=== PATIENT | female | born 1985 | race Caucasian/White ===

== ENCOUNTER 2016-12-13 05:39 | Inpatient (IN) | payer MEDICAID ==
[2016-12-13] MEDS ORDERED: Sodium Chloride 0.9% 10 ML Syringe FLUSH PRN (05:51)
[2016-12-13] MEDS ORDERED: Sodium Chloride 0.9% 2.5 ML Syringe FLUSH PRN (05:51)
[2016-12-13] MEDS ORDERED: Citric Acid/Sodium Citrate Solution 30 ML Cup PO SCH (06:00)
[2016-12-13] MEDS ORDERED: ceFAZolin 1 GM in Premix Bag 1 BAG IV ONE (06:00)
[2016-12-13] MEDS: Lactated Ringers 1,000 ML IV SCH ×2 (06:15→07:36)
--- NOTE | 2016-12-13 07:02 | PCM.PREANE ---
Preanesthetic Assessment - Procedure Proposed Procedure: C Section, repeat performance - Anesthesia/Transfusion/Family Hx Anesthesia History: Prior Anesthesia Without Reaction Other Type of Anesthesia Reaction Comment: has had problems with Epidural and Spinal anesthesia Family History of Anesthesia Reaction: No Transfusion History: No Prior Transfusion(s) Intubation History: Unknown - Review of Systems General: No Symptoms Pulmonary: No Symptoms Cardiovascular: No Symptoms Gastrointestinal: Other (GERD of ) Neurological: No Symptoms Other: Reports: Anxiety - Physical Assessment Height: 5 ft 1 in Weight: 159 lb ASA Class: 2 Mental Status: Alert & Oriented x3 Airway Class: Mallampati = 2 Dentition: Reports: Normal Dentition Thyro-Mental Finger Breadths: 4 Mouth Opening Finger Breadths: 3 (small) ROM/Head Extension: Full Lungs: Clear to auscultation, Normal respiratory effort Cardiovascular: Regular Rate, Regular Rhythm, No Murmurs - Lab Values: Laboratory Last Values WBC 19.35 K/uL (4.0-11.0) H 12/13/16 06:13 RBC 3.78 M/uL (4.30-5.90) L 12/13/16 06:13 Hgb 12.1 g/dL (12.0-16.0) 12/13/16 06:13 Hct 36.1 % (36.0-46.0) 12/13/16 06:13 MCV 95.5 fL (80.0-98.0) 12/13/16 06:13 MCH 32.0 pg (27.0-32.0) 12/13/16 06:13 MCHC 33.5 g/dL (31.0-37.0) 12/13/16 06:13 RDW Std Deviation 51.8 fl (28.0-62.0) 12/13/16 06:13 RDW Coeff of Ashlee 15 % (11.0-15.0) 12/13/16 06:13 Plt Count 175 K/uL (150-400) 12/13/16 06:13 MPV 11.00 fL (7.40-12.00) 12/13/16 06:13 Nucleated RBC % 0.0 /100WBC 12/13/16 06:13 Nucleated RBCs # 0 K/uL 12/13/16 06:13 - Allergies Allergies/Adverse Reactions: Allergies Allergy/AdvReac Type Severity Reaction Status Date / Time latex Allergy Rash Verified 12/10/16 15:47 - Blood Blood Available: No - Anesthesia Plan Pre-Op Medication Ordered: Antacids - Acknowledgements Anesthesia Type Planned: Spinal Pt an Appropriate Candidate for the Planned Anesthesia: Yes Alternatives and Risks of Anesthesia Discussed w Pt/Guardian: Yes Pt/Guardian Understands and Agrees with Anesthesia Plan: Yes Additional Comments: father of baby present for interview, exam, and will be in OR for delivery. PreAnesthesia Questionnaire Other HEENT History: wears glasses Cardiovascular History: Reports: None Respiratory History: Reports: None Gastrointestinal History: Reports: GERD Other Gastrointestinal History: during Genitourinary History: Reports: Other (see below) Other Genitourinary History: current UTI [employer] History: Reports: , Therapeutic Musculoskeletal History: Reports: Neck pain, chronic Neurological History: Reports: Concussion, Headaches, chronic Psychiatric History: Reports: Anxiety Endocrine/Metabolic History: Reports: None Hematologic History: Reports: None Immunologic History: Reports: None Oncologic (Cancer) History: Reports: None Dermatologic History: Reports: None - Past Surgical History Head Surgeries/Procedures: Reports: None HEENT Surgical History: Reports: None Cardiovascular Surgical History: Reports: None Respiratory Surgical History: Reports: None GI Surgical History: Reports: None Female Surgical History: Reports: section, LEEP Endocrine Surgical History: Reports: None Neurological Surgical History: Reports: None Musculoskeletal Surgical History: Reports: Other (see below) Other Musculoskeletal Surgeries/Procedures:: left wrist- tendon Oncologic Surgical History: Reports: None - SUBSTANCE USE Smoking Status *Q: Current Every Day Smoker Tobacco Use Within Last Twelve Months: Cigarettes Second Hand Smoke Exposure: Yes Recreational Drug Use History: No - HOME MEDS Home Medications: Home Meds Cranberry 400 mg PO DAILY 12/10/16 [History] Nitrofurantoin [place]/Macrocryst [Macrobid] 100 mg PO BID 12/10/16 [History] PNV95/Ferrous Fumarate/FA [ Tablet] 1 tab PO DAILY 12/10/16 [History] valACYclovir HCl [Valtrex] 500 mg PO DAILY 12/10/16 [History] - CURRENT (IN HOUSE) MEDS Current Meds: Current Medications Citric Acid/Sodium Citrate (Bicitra Solution) 30 ml PO .ONCE NIKOLAS Lactated Ringer's (Ringers, Lactated) 1,000 mls @ 500 mls/hr IV .BOLUS NIKOLAS Last Admin: 12/13/16 06:15 Dose: 500 mls/hr Sodium Chloride (Saline Flush) 10 ml FLUSH ASDIRECTED PRN PRN Reason: Keep Vein Open Sodium Chloride (Saline Flush) 2.5 ml FLUSH ASDIRECTED PRN PRN Reason: Keep Vein Open Discontinued Medications Cefazolin Sodium/Dextrose 1 gm (/ Premix) 50 mls @ 100 mls/hr IV ONETIME ONE Stop: 12/13/16 06:29 Preanesthetic Assessment - ANESTHESIA/TRANSFUSION/FAMILY HX Other Type of Anesthesia Reaction Comment: has had problems with Epidural and Spinal anesthesia Family History of Anesthesia Reaction: No - PHYSICAL ASSESSMENT Height: 5 ft 1 in Weight: 159 lb - LAB Values: Laboratory Last Values WBC 19.35 K/uL (4.0-11.0) H 12/13/16 06:13 RBC 3.78 M/uL (4.30-5.90) L 12/13/16 06:13 Hgb 12.1 g/dL (12.0-16.0) 12/13/16 06:13 Hct 36.1 % (36.0-46.0) 12/13/16 06:13 MCV 95.5 fL (80.0-98.0) 12/13/16 06:13 MCH 32.0 pg (27.0-32.0) 12/13/16 06:13 MCHC 33.5 g/dL (31.0-37.0) 12/13/16 06:13 RDW Std Deviation 51.8 fl (28.0-62.0) 12/13/16 06:13 RDW Coeff of Ashlee 15 % (11.0-15.0) 12/13/16 06:13 Plt Count 175 K/uL (150-400) 12/13/16 06:13 MPV 11.00 fL (7.40-12.00) 12/13/16 06:13 Nucleated RBC % 0.0 /100WBC 12/13/16 06:13 Nucleated RBCs # 0 K/uL 12/13/16 06:13 - ALLERGIES Allergies/Adverse Reactions: Allergies Allergy/AdvReac Type Severity Reaction Status Date / Time latex Allergy Rash Verified 12/10/16 15:47
[2016-12-13] MEDS ORDERED: Oxytocin 10 Units/1 ML SDV ONE (07:15)
[2016-12-13] MEDS ORDERED: Morphine PF 10 MG/10 ML SDV ONE (07:15)
[2016-12-13] MEDS ORDERED: Ondansetron 4 MG/2 ML SDV ONE (07:15)
[2016-12-13] MEDS ORDERED: ePHEDrine 50 MG/ML SDV ONE (08:10)
[2016-12-13] MEDS ORDERED: Phenylephrine/Normal Saline 100 MCG/ML 10 ML Syringe ONE (08:14)
[2016-12-13] MEDS ORDERED: fentaNYL 100 MCG/2 ML SDV ONE (08:34)
[2016-12-13] MEDS ORDERED: Acetaminophen/oxyCODONE 325-5 MG Tab PO PRN ×2 (08:49→08:58)
[2016-12-13] MEDS ORDERED: diphenhydrAMINE 50 MG/ML SDV IVPUSH PRN ×2 (08:49→08:58)
[2016-12-13] MEDS ORDERED: Naloxone 0.4 MG/ML Syringe IVPUSH PRN (08:49)
[2016-12-13] MEDS ORDERED: Nalbuphine 10 MG/1 ML Vial IVPUSH PRN (08:49)
[2016-12-13] MEDS ORDERED: Octyl 2-Cyanoacrylate 1 Tube ONE (08:50)
[2016-12-13] MEDS ORDERED: Simethicone 80 MG Tab.Chew PO PRN (08:58)
[2016-12-13] MEDS ORDERED: Lanolin 100% Cream 7 GM Tube TOP PRN (08:58)
[2016-12-13] MEDS ORDERED: Ondansetron 4 MG/2 ML SDV IV PRN (08:58)
[2016-12-13] MEDS ORDERED: Ibuprofen 800 MG Tab PO PRN (08:58)
[2016-12-13] MEDS ORDERED: Bisacodyl 10 MG Supp RECTAL PRN (08:58)
[2016-12-13] MEDS ORDERED: Lactated Ringers 1,000 ML IV SCH (09:00)
--- NOTE | 2016-12-13 09:07 | PCM.OPNOTE ---
- General Post-Op/Procedure Note Date of Surgery/Procedure: 12/13/16 Operative Procedure(s): Repeat LTCS Findings: Term male APGARs 9, 9 weight 3460 gm. Intact placenta with 3V cord. Light meconium stained amniotic fluid. Pre Op Diagnosis: 39 week IUP. Previous c section x 3, desired repeat Post-Op Diagnosis: Same Anesthesia Technique: Spinal Primary Surgeon: Love Gilbert Fluid Replacement, Intraop: 2,000 EBL in mLs: 400 Condition: Good Free Text/Narrative:: Dictation [id number]
[2016-12-13] MEDS: Ketorolac 30 MG/ML SDV IVPUSH SCH ×3 (09:48→20:23)
[2016-12-13] MEDS ORDERED: fentaNYL 100 MCG/2 ML SDV IVPUSH PRN (12:51)
--- NOTE | 2016-12-13 13:46 | OR ---
SURGEON: Love Gilbert M.D. DATE OF PROCEDURE: 12/13/2016 PREOPERATIVE DIAGNOSES: 1. Thirty-nine week interim . 2. Previous section x3. Desires repeat. POSTOPERATIVE DIAGNOSES: 1. Thirty-nine week interim . 2. Previous section x3. Desires repeat. PROCEDURE: Repeat low transverse section. ANESTHESIA: Spinal. ESTIMATED BLOOD LOSS: 400 mL. FLUIDS: 2000 mL crystalloid. COMPLICATION: None known. FINDINGS: Term male score 9 at 1 minute, 9 at 5 minute. Weight of 3460 g. Intact placenta, 3-vessel cord. Light meconium-stained amniotic fluid. DISPOSITION: The patient to PACU, stable. Infant, nursery. INDICATIONS: Arin is a 31-year-old, G6, P3, A2 at 39 weeks' gestational age, who presents today for scheduled repeat delivery. The risks of the procedure have been discussed with her. Proper consent obtained. DESCRIPTION OF PROCEDURE: The patient was taken to the operating room, where she underwent spinal anesthetic, was placed in the supine position with leftward tilt. SCDs, lower extremities. Pickett to gravity. Prepped and draped in a sterile fashion. heart tones in the 140s with reactive NST. A time-out was performed. Anesthesia was tested, found to be adequate. Previous Pfannenstiel scar was now excised. Subcutaneous tissue was incised down the level of the rectus fascia, which was incised in the midline, lateralized on either side sharply and bluntly. The superior aspect of fascia was tented upward, dissected sharply and bluntly from underlying muscles. The inferior aspect of the fascia, rectus muscle in the midline. The peritoneum was entered and rectus muscles, peritoneum lateralized bluntly. Uterine position, position palpated. Self-retaining retractor gently placed. Uterovesical reflection was visualized. Bladder flap was created sharply and bluntly. Bladder was mobilized away from lower uterine segment. The lower uterine segment was quite thin, actually peritoneal window was present for majority of the midline portion of it and therefore with care, the uterine cavity was gently entered with the blunt end of the scalpel after making a single incision with the hysterotomy. Light meconium-stained amniotic fluid was returned. The hysterotomy was now lateralized bluntly. The infant's head was flexed and delivered from the pelvis. Fundal pressure was applied. The 's head was delivered followed by the posterior shoulder, anterior shoulder, and main body. The infant's oropharynx and nares bulb suctioned. Cord clamped x2 and cut. crying vigorously with good tone. was handed off to attending nursing staff. Cord arterial, cord venous, cord blood sampling was obtained. The placenta was now delivered manually. Uterine cavity was cleared of all clot and debris. Hysterotomy was repaired using 0 Vicryl in continuous running locked fashion followed by a re-imbricating layer. There was a small amount of oozing along the left lateral aspect of the incision. This was repaired with a figure-of- eight suture. Hemostasis thereafter evident. Posterior aspect of the uterus inspected, no defects or hematomas found be forming. Region was well irrigated, suction dried. Colonic gutters were cleared of all clot and debris, well irrigated, suction dried. The hysterotomy was once again inspected, found to be hemostatic. Self-retaining retractor now gently removed. The bladder blade was placed. Hysterotomy was again inspected, found to be hemostatic. The rectus muscles were now reapproximated using 0 Vicryl with inverted mattress suture technique. Anterior aspect of the muscle, posterior aspect of the fascia closely inspected. Any areas of oozing were cauterized. The rectus fascia was reapproximated using 0 Vicryl in continuous running fashion beginning laterally and tied in the midline. Subcutaneous tissue was well irrigated suction dried. Any areas of oozing were cauterized. The subcutaneous tissue was reapproximated using 3-0 plain in continuous running fashion. Subcuticular suture with 3-0 Vicryl on a Marko needle was now performed in order to perform skin closure. Dermabond re-imbricated skin incision. Sponge, instrument, needle counts correct x3. The patient has tolerated the procedure well. She will go to PACU in stable condition. Infant nursery. WALT / TRANG /[id number]
[2016-12-13] MEDS: Acetaminophen/oxyCODONE 325-5 MG Tab PO PRN (14:26)
[2016-12-13] MEDS: Docusate Sodium 100 MG Cap PO SCH ×2 (16:44→20:26)
[2016-12-14] MEDS: Acetaminophen/oxyCODONE 325-5 MG Tab PO PRN ×4 (00:12→20:14)
[2016-12-14] MEDS: Ketorolac 30 MG/ML SDV IVPUSH SCH ×2 (02:59→09:09)
--- NOTE | 2016-12-14 05:41 | PCM48HPAN ---
Post Anesthesia Note - EVALUATION WITHIN 48HRS OF ANESTHETIC Vital Signs in Normal Range: Yes Patient Participated in Evaluation: Yes Respiratory Function Stable: Yes Airway Patent: Yes Cardiovascular Function Stable: Yes Hydration Status Stable: Yes Pain Control Satisfactory: Yes Nausea and Vomiting Control Satisfactory: Yes Mental Status Recovered: Yes
--- NOTE | 2016-12-14 08:57 | PCM.PNPP ---
- General Info Date of Service: 12/14/16 Functional Status: Reports: pain controlled, tolerating diet, ambulating, urinating - Review of Systems General: Denies: Fever Pulmonary: Denies: shortness of breath Cardiovascular: Denies: Chest Pain, Palpitations, Lightheadedness Gastrointestinal: Denies: Nausea, Vomiting Genitourinary: Denies: flank pain Psychiatric: Reports: no symptoms - General Info Date of Service: 12/14/16 - Patient Data Vital Signs - most recent: Last Vital Signs Temp 36.6 C 12/14/16 04:00 Pulse 100 12/14/16 07:00 Resp 16 12/14/16 07:00 BP 109/66 12/14/16 04:00 Pulse Ox 93 L 12/14/16 07:00 Weight - most recent: 72.121 kg I&O - last 24 hours: Intake & Output 12/13/16 12/14/16 12/14/16 22:59 06:59 14:59 Intake Total 1000 1354 Output Total 2350 2275 Balance -1350 -921 Lab Results - last 24 hrs: Laboratory Results - last 24 hr 12/14/16 Range/Units 04:15 Hgb 10.2 L (12.0-16.0) g/dL Hct 30.5 L (36.0-46.0) % Med Orders - Current: Current Medications Bisacodyl (Dulcolax) 10 mg RECTAL .ONCE PRN PRN Reason: Constipation Citric Acid/Sodium Citrate (Bicitra Solution) 30 ml PO .ONCE NIKOLAS Last Admin: 12/13/16 07:34 Dose: 30 ml Diphenhydramine HCl (Benadryl) 25 mg IVPUSH Q6H PRN PRN Reason: Itching or Nausea Docusate Sodium (Colace) 100 mg PO BID NIKOLAS Last Admin: 12/13/16 20:26 Dose: 100 mg Emollient Ointment (Lansinoh Hpa) 0 gm TOP ASDIRECTED PRN PRN Reason: Sore Nipples Fentanyl (Sublimaze) 25 - 50 mcg IVPUSH Q30M PRN PRN Reason: Pain Last Admin: 12/13/16 13:10 Dose: 50 mcg Lactated Ringer's (Ringers, Lactated) 1,000 mls @ 500 mls/hr IV .BOLUS NIKOLAS Last Admin: 12/13/16 07:36 Dose: 500 mls/hr Lactated Ringer's (Ringers, Lactated) 1,000 mls @ 125 mls/hr IV ASDIRECTED [facility] Last Admin: 12/13/16 13:00 Dose: 125 mls/hr Ibuprofen (Motrin) 800 mg PO Q8H PRN PRN Reason: mild pain or fever Ketorolac Tromethamine (Toradol) 30 mg IVPUSH Q6H NIKOLAS Stop: 12/14/16 09:01 Last Admin: 12/14/16 02:59 Dose: 30 mg Ondansetron HCl (Zofran) 4 mg IV Q4H PRN PRN Reason: Nausea/Vomiting Oxycodone/Acetaminophen (Percocet 325-5 Mg) 1 tab PO Q4H PRN PRN Reason: Pain (moderate 4-6) Oxycodone/Acetaminophen (Percocet 325-5 Mg) 2 tab PO Q4H PRN PRN Reason: Pain (moderate 4-6) Oxycodone/Acetaminophen (Percocet 325-5 Mg) 1 - 2 tab PO Q6H PRN PRN Reason: Pain Stop: 12/15/16 14:00 Last Admin: 12/14/16 00:12 Dose: 1 tab Simethicone (Simethicone) 80 mg PO Q4H PRN PRN Reason: Gas Sodium Chloride (Saline Flush) 10 ml FLUSH ASDIRECTED PRN PRN Reason: Keep Vein Open Sodium Chloride (Saline Flush) 2.5 ml FLUSH ASDIRECTED PRN PRN Reason: Keep Vein Open Discontinued Medications Diphenhydramine HCl (Benadryl) 25 mg IVPUSH Q4H PRN PRN Reason: pruritis Stop: 12/14/16 08:51 Last Admin: 12/13/16 14:08 Dose: 25 mg Ephedrine Sulfate (Ephedrine Sulfate) Confirm Administered Dose 50 mg .ROUTE .STK-MED ONE Stop: 12/13/16 08:11 Fentanyl (Sublimaze) Confirm Administered Dose 100 mcg .ROUTE .STK-MED ONE Stop: 12/13/16 08:35 Cefazolin Sodium/Dextrose 1 gm (/ Premix) 50 mls @ 100 mls/hr IV ONETIME ONE Stop: 12/13/16 06:29 Last Admin: 12/13/16 14:00 Dose: Not Given Cefazolin Sodium/Dextrose (Ancef) Confirm Administered Dose 50 mls @ as directed .ROUTE .STK-MED ONE Stop: 12/13/16 07:16 Morphine Sulfate (Duramorph Pf) Confirm Administered Dose 10 mg .ROUTE .STK-MED ONE Stop: 12/13/16 07:16 Nalbuphine HCl (Nubain) 2.5 mg IVPUSH Q3H PRN PRN Reason: Pruritis Stop: 12/14/16 08:51 Naloxone HCl (Narcan) 0.1 mg IVPUSH ONETIME PRN PRN Reason: RR<6 WITH STIMULATION Stop: 12/14/16 08:51 Octyl Cyanoacrylate (Dermabond Advance) Confirm Administered Dose 1 applic .ROUTE .STK-MED ONE Stop: 12/13/16 08:51 Ondansetron HCl (Zofran) Confirm Administered Dose 4 mg .ROUTE .STK-MED ONE Stop: 12/13/16 07:16 Oxycodone/Acetaminophen (Percocet 325-5 Mg) 1 tab PO .Q4HR PRN PRN Reason: Pain (moderate 4-6) Oxytocin (Pitocin) Confirm Administered Dose 20 unit .ROUTE .STK-MED ONE Stop: 12/13/16 07:16 Phenylephrine HCl (Phenylephrine In Ns 100 Mcg/Ml) Confirm Administered Dose 1 mg .ROUTE .STK-MED ONE Stop: 12/13/16 08:15 - Infant Interaction Support Person: - Recovery Exam Fundal Tone: Firm Fundal Level: At Umbilicus Fundal Placement: Midline Lochia Amount: Scant Lochia Color: Rubra/Red Perineum Description: Intact, Minimal Bruising/Swelling Episiotomy/Laceration: None Bladder Status: Voiding Urinary Elimination: Voided - Exam General: alert, oriented Lungs: Normal respiratory effort Cardiovascular: Regular Rate, Regular Rhythm Abdomen: soft, no tenderness. No: CVA tenderness Extremities: no calf tenderness, edema (trace pedal) Wound/Incisions: healing well, no drainage Psy/Mental Status: alert, normal affect - Problem List & Annotations (1) delivery delivered SNOMED Code(s): 156303918 Code(s): O82 - ENCOUNTER FOR DELIVERY WITHOUT INDICATION Status: Acute Current Visit: Yes - Problem List Review Problem List Initiated/Reviewed/Updated: Yes - My Orders Last 24 Hours: My Active Orders 12/13/16 08:58 Patient Status [ADT] Routine Ambulate [RC] PER UNIT ROUTINE Antiembolic Devices [RC] PER UNIT ROUTINE Communication Order [RC] PER UNIT ROUTINE Communication Order [RC] Per Unit Routine May Shower [RC] ASDIRECTED Notify Provider Intake and Out [RC] ASDIRECTED Notify Provider Vital Signs [RC] ASDIRECTED RT Incentive Spirometry [RC] Q2HWA Vital Signs [RC] PER UNIT ROUTINE Acetaminophen/oxyCODONE [Percocet 325-5 MG] 1 tab PO Q4H PRN Acetaminophen/oxyCODONE [Percocet 325-5 MG] 2 tab PO Q4H PRN Bisacodyl [Dulcolax] 10 mg RECTAL .ONCE PRN Ibuprofen [Motrin] 800 mg PO Q8H PRN Lanolin [Lansinoh HPA] See Dose Instructions TOP ASDIRECTED PRN Ondansetron [Zofran] 4 mg IV Q4H PRN Simethicone 80 mg PO Q4H PRN diphenhydrAMINE [Benadryl] 25 mg IVPUSH Q6H PRN Abdominal Binder [OM.PC] Routine Assess Lochia [WOMSER] Per Unit Routine Assess Uterine Involution [WOMSER] Per Unit Routine Breast Pump [WOMSER] Per Unit Routine Heat Therapy [OM.PC] Routine Ice Therapy [OM.PC] Routine Peripheral IV Discontinue [OM.PC] Routine Sequential Compression Device [OM.PC] Per Unit Routine 12/13/16 09:00 Docusate Sodium [Colace] 100 mg PO BID Ketorolac [Toradol] 30 mg IVPUSH Q6H Lactated Ringers [Ringers, Lactated] 1,000 ml IV ASDIRECTED 12/13/16 Lunch Regular Diet [DIET] - Assessment Assessment:: POD 1 status post Repeat LTCS - Plan Plan:: VS are stable, labs are reassuring. Ambulate halls today. Continue / postop cares. Anticipate discharge in the morning.
[2016-12-14] MEDS: Docusate Sodium 100 MG Cap PO SCH (09:10)
--- NOTE | 2016-12-14 16:45 | PCM.DCSUM1 ---
Discharge Summary - Hospital Course Free Text/Narrative:: Patient is requesting to go home tonight instead of having to be [facility] due to patient room availability. She is ambulating, voiding, tolerating regular diet. Oral pain meds are working well. She has good familial support and prefers to go home. - Discharge Data Discharge Date: 12/14/16 Discharge Disposition: Home, Self-Care 01 Condition: Good - Discharge Diagnosis/Problem(s) (1) delivery delivered SNOMED Code(s): 065705032 ICD Code: O82 - ENCOUNTER FOR DELIVERY WITHOUT INDICATION Status: Acute Current Visit: Yes - Patient Summary/Data Operative Procedure(s) Performed: Repeat LTCS - Patient Instructions Diet: Regular Diet as Tolerated Activity: No Strenuous Activities, Rest and Relax Today Showering/Bathing: May Shower Wound/Incision Care: Keep Operative Site/Wound Site Clean and Dry Notify Provider of: Fever, Increased Pain, Swelling and Redness, Drainage, Nausea and/or Vomiting Other/Special Instructions: Pelvic rest for 6 weeks, no lifting greater than 15 pounds for 6 weeks. Continue PNV daily. May use OTC ibuprofen/tylenol as needed for pain. Call if temperature greater than 101 or bleeding more than a thick pad per hour - Discharge Plan Home Medications: Home Meds Cranberry 400 mg PO DAILY 12/10/16 [History] Nitrofurantoin [place]/Macrocryst [Macrobid] 100 mg PO BID 12/10/16 [History] PNV95/Ferrous Fumarate/FA [ Tablet] 1 tab PO DAILY 12/10/16 [History] valACYclovir HCl [Valtrex] 500 mg PO DAILY 12/10/16 [History] Referrals: [facility] [Outside] Love Gilbert MD [Physician] - (2 week- January 03 @ 11:00am w/ Dr. Gilbert 6 week- January 26 @ 9:15am w/ Dr. Gilbert) - Discharge Summary/Plan Comment DC Time >30 min.: No Discharge Summary/Plan Comment: Discharge to home today. Follow up at [facility] 2 and 6 weeks. Infection and bleeding warnings reviewed. Discharge instructions reviewed. - General Info Date of Service: 12/14/16 Functional Status: Reports: pain controlled, tolerating diet, ambulating, urinating - Review of Systems General: Denies: Fever Cardiovascular: Denies: Chest Pain, Palpitations, Lightheadedness Gastrointestinal: Denies: Abdominal pain, Nausea, Vomiting Genitourinary: Denies: flank pain Neurological: Reports: No Symptoms - Patient Data Vitals - Most Recent: Last Vital Signs Temp 37.0 C 12/14/16 08:00 Pulse 95 12/14/16 08:00 Resp 16 12/14/16 08:00 BP 107/62 12/14/16 08:00 Pulse Ox 93 L 12/14/16 08:00 Weight - Most Recent: 72.121 kg I&O - Last 24 hours: Intake & Output 12/14/16 12/14/16 12/14/16 06:59 14:59 22:59 Intake Total 1354 Output Total 2275 Balance -921 Lab Results - Last 24 hrs: Laboratory Results - last 24 hr 12/14/16 Range/Units 04:15 Hgb 10.2 L (12.0-16.0) g/dL Hct 30.5 L (36.0-46.0) % Med Orders - Current: Current Medications Bisacodyl (Dulcolax) 10 mg RECTAL .ONCE PRN PRN Reason: Constipation Citric Acid/Sodium Citrate (Bicitra Solution) 30 ml PO .ONCE [facility] Last Admin: 12/13/16 07:34 Dose: 30 ml Diphenhydramine HCl (Benadryl) 25 mg IVPUSH Q6H PRN PRN Reason: Itching or Nausea Docusate Sodium (Colace) 100 mg PO BID [facility] Last Admin: 12/14/16 09:10 Dose: 100 mg Emollient Ointment (Lansinoh Hpa) 0 gm TOP ASDIRECTED PRN PRN Reason: Sore Nipples Fentanyl (Sublimaze) 25 - 50 mcg IVPUSH Q30M PRN PRN Reason: Pain Last Admin: 12/13/16 13:10 Dose: 50 mcg Lactated Ringer's (Ringers, Lactated) 1,000 mls @ 500 mls/hr IV .BOLUS NIKOLAS Last Admin: 12/13/16 07:36 Dose: 500 mls/hr Lactated Ringer's (Ringers, Lactated) 1,000 mls @ 125 mls/hr IV ASDIRECTED [facility] Last Admin: 12/13/16 13:00 Dose: 125 mls/hr Ibuprofen (Motrin) 800 mg PO Q8H PRN PRN Reason: mild pain or fever Ondansetron HCl (Zofran) 4 mg IV Q4H PRN PRN Reason: Nausea/Vomiting Oxycodone/Acetaminophen (Percocet 325-5 Mg) 1 tab PO Q4H PRN PRN Reason: Pain (moderate 4-6) Oxycodone/Acetaminophen (Percocet 325-5 Mg) 2 tab PO Q4H PRN PRN Reason: Pain (moderate 4-6) Last Admin: 12/14/16 15:37 Dose: 2 tab Oxycodone/Acetaminophen (Percocet 325-5 Mg) 1 - 2 tab PO Q6H PRN PRN Reason: Pain Stop: 12/15/16 14:00 Last Admin: 12/14/16 00:12 Dose: 1 tab Simethicone (Simethicone) 80 mg PO Q4H PRN PRN Reason: Gas Sodium Chloride (Saline Flush) 10 ml FLUSH ASDIRECTED PRN PRN Reason: Keep Vein Open Sodium Chloride (Saline Flush) 2.5 ml FLUSH ASDIRECTED PRN PRN Reason: Keep Vein Open Discontinued Medications Diphenhydramine HCl (Benadryl) 25 mg IVPUSH Q4H PRN PRN Reason: pruritis Stop: 12/14/16 08:51 Last Admin: 12/13/16 14:08 Dose: 25 mg Ephedrine Sulfate (Ephedrine Sulfate) Confirm Administered Dose 50 mg .ROUTE .STK-MED ONE Stop: 12/13/16 08:11 Fentanyl (Sublimaze) Confirm Administered Dose 100 mcg .ROUTE .STK-MED ONE Stop: 12/13/16 08:35 Cefazolin Sodium/Dextrose 1 gm (/ Premix) 50 mls @ 100 mls/hr IV ONETIME ONE Stop: 12/13/16 06:29 Last Admin: 12/13/16 14:00 Dose: Not Given Cefazolin Sodium/Dextrose (Ancef) Confirm Administered Dose 50 mls @ as directed .ROUTE .STK-MED ONE Stop: 12/13/16 07:16 Ketorolac Tromethamine (Toradol) 30 mg IVPUSH Q6H NIKOLAS Stop: 12/14/16 09:01 Last Admin: 12/14/16 09:09 Dose: 30 mg Morphine Sulfate (Duramorph Pf) Confirm Administered Dose 10 mg .ROUTE .STK-MED ONE Stop: 12/13/16 07:16 Nalbuphine HCl (Nubain) 2.5 mg IVPUSH Q3H PRN PRN Reason: Pruritis Stop: 12/14/16 08:51 Naloxone HCl (Narcan) 0.1 mg IVPUSH ONETIME PRN PRN Reason: RR<6 WITH STIMULATION Stop: 12/14/16 08:51 Octyl Cyanoacrylate (Dermabond Advance) Confirm Administered Dose 1 applic .ROUTE .STK-MED ONE Stop: 12/13/16 08:51 Ondansetron HCl (Zofran) Confirm Administered Dose 4 mg .ROUTE .STK-MED ONE Stop: 12/13/16 07:16 Oxycodone/Acetaminophen (Percocet 325-5 Mg) 1 tab PO .Q4HR PRN PRN Reason: Pain (moderate 4-6) Oxytocin (Pitocin) Confirm Administered Dose 20 unit .ROUTE .STK-MED ONE Stop: 12/13/16 07:16 Phenylephrine HCl (Phenylephrine In Ns 100 Mcg/Ml) Confirm Administered Dose 1 mg .ROUTE .STK-MED ONE Stop: 12/13/16 08:15 - Exam General: Reports: alert, oriented Lungs: Reports: Normal respiratory effort Cardiovascular: Reports: Regular Rate, Regular Rhythm Abdomen: Reports: bowel sounds present, soft, no tenderness. Denies: CVA tenderness Extremities: Reports: normal pulses, no calf tenderness *Q Meaningful Use (DIS) - VTE *Q VTE Criteria *Q: - Stroke *Q Stroke Criteria *Q: - AMI *Q AMI Criteria *Q:
== END 2016-12-14 20:40 | disposition home or self-care (01) | DRG 766 ==
LOC: MW.OB 05:39
PROVIDERS: ADMIT Obstetrics & Gynecology; ATTEND Obstetrics & Gynecology
PROC: 10D00Z1 Extraction of Products of Conception, Low, Open Approach (ICD-10-PCS; principal; 2016-12-13)
DX: O34.211 Maternal care for low transverse scar from previous cesarean delivery (principal); Z3A.39 39 weeks gestation of pregnancy; Z37.0 Single live birth
CPT/HCPCS: 01961; 36415; 59025; 85014; 85018; 85027; 86850; 86900; 86901; A9270-GY; J0690; J1200; J1885; J2270; J2405; J2590; J3010; J7120

== ENCOUNTER 2020-03-29 17:13 | Emergency (ER) | payer MEDICAID ==
[2020-03-29] MEDS ORDERED: Sodium Chloride 0.9% 2.5 ML Syringe FLUSH PRN (18:05)
[2020-03-29] MEDS ORDERED: Sodium Chloride 0.9% 1,000 ML IV ONE ×2 (18:05→18:49)
[2020-03-29] MEDS ORDERED: Sodium Chloride 0.9% 10 ML Syringe FLUSH PRN (18:05)
[2020-03-29] MEDS ORDERED: Ondansetron 4 MG/2 ML SDV IVPUSH ONE (18:05)
[2020-03-29] MEDS ORDERED: Ketorolac 15 MG/ML SDV IVPUSH ONE (18:50)
[2020-03-29] MEDS ORDERED: Clindamycin HCl 150 MG Cap PO ONE (18:51)
[2020-03-29 19:39] LABS: BLOOD UREA NITROGEN,BUN 5 mg/dL (7.0-18.0); CARBON DIOXIDE,CO2 27.8 mmol/L (21.0-32.0); CHLORIDE,CL 102 mmol/L (98-107); GLUCOSE RANDOM 93 mg/dL (74-106); POTASSIUM,K 3.6 mmol/L (3.5-5.1); SODIUM,NA 139 mmol/L (136-145)
--- NOTE | 2020-03-29 19:52 | EDM.PDOC ---
ED HPI GENERAL MEDICAL PROBLEM - General Chief Complaint: General Stated Complaint: TOOTH PAIN Time Seen by Provider: 03/29/20 17:25 - History of Present Illness INITIAL COMMENTS - FREE TEXT/NARRATIVE: History of present illness: [] Has a toothache for 4 days. She has carious teeth. She is visiting from [facility] and cannot go back for quite some time. The tooth ache is causing her severe pain. Cold and hot in the area and liquids cause pain. She has carious teeth in the mandibular area on the right side. The patient has no systemic signs of illness. She has no trismus. She can swallow her saliva. There is some swelling starting yesterday in the right lateral side of her face. Review of systems: As per history of present illness and below otherwise all systems reviewed and negative. Past medical history: As per history of present illness and as reviewed below otherwise noncontributory. Surgical history: As per history of present illness and as reviewed below otherwise noncontributory. Social history: No reported history of drug or alcohol abuse. Family history: As per history of present illness and as reviewed below otherwise noncontributory. Physical exam: Constitutional - well developed, well-nourished and in no acute distress HEENT - normocephalic, no evidence of trauma - external nose and mouth normal - no mass in neck and no JVD - mucosae moist EYES - full EOM, PERRL, no icterus - no evidence of inflammation, injection, or drainage Respiratory - no respiratory distress, equal bilateral expansion, lungs clear to auscultation and no abnormal lung sounds Cardiovascular - Regular Rhythm with S1 and S2 appreciated and no murmur, gallop or rub. Peripheral pulses symmetrically normal in all four extremities GI - abdomen soft without distension or organomegaly - normal bowel sounds - no guard or rebound Musculoskeletal no gross deformity of long bones or joints - no tenderness, swelling or edema Neurologic - Alert and oriented times four - CN II-XII grossly intact - motor sensory and coordination symmetrically normal Psychiatric - appropriate mood and affect with normal thought content Hematologic - No petechiae or purpura - mucosa appropriate color and sclera not pale - normal nail bed color and refill Integument - no rash or evidence of trauma - normal turgor Diagnostics: [] Therapeutics: [] Impression: [] Plan: [] Definitive disposition and diagnosis as appropriate pending reevaluation and review of above. - Related Data Allergies Allergy/AdvReac Type Severity Reaction Status Date / Time No Known Allergies Allergy Verified 03/29/20 19:09 Home Meds: Home Meds Penicillin V Potassium [Veetids] 500 mg PO Q12HR #20 tab 03/29/20 [Rx] Past Medical History Other HEENT History: wears glasses Cardiovascular History: Reports: None Respiratory History: Reports: None Gastrointestinal History: Reports: GERD Other Gastrointestinal History: during Genitourinary History: Reports: Other (See Below) Other Genitourinary History: current UTI [employer] History: Reports: , Therapeutic Musculoskeletal History: Reports: Neck Pain, Chronic Neurological History: Reports: Concussion, Headaches, Chronic Psychiatric History: Reports: Anxiety Endocrine/Metabolic History: Reports: None Hematologic History: Reports: None Immunologic History: Reports: None Oncologic (Cancer) History: Reports: None Dermatologic History: Reports: None - Past Surgical History Head Surgeries/Procedures: Reports: None HEENT Surgical History: Reports: None Cardiovascular Surgical History: Reports: None Respiratory Surgical History: Reports: None GI Surgical History: Reports: None Female Surgical History: Reports: Section, LEEP Endocrine Surgical History: Reports: None Musculoskeletal Surgical History: Reports: Other (See Below) Oncologic Surgical History: Reports: None Social & Family History - Family History Family Medical History: Noncontributory - Tobacco Use Smoking Status *Q: Current Every Day Smoker Years of Tobacco use: 15 Packs/Tins Daily: 1 - Caffeine Use Caffeine Use: Reports: Soda - Recreational Drug Use Recreational Drug Use: No ED ROS GENERAL - Review of Systems Review Of Systems: Comprehensive ROS is negative, except as noted in HPI. ED EXAM, GENERAL - Physical Exam Exam: See Below Free Text/Narrative:: Exam is in my HPI Course - Vital Signs Last Recorded V/S: Last Vital Signs Temp 97.4 F 03/29/20 17:22 Pulse 99 03/29/20 17:22 Resp 16 03/29/20 17:22 BP 123/78 03/29/20 17:22 Pulse Ox 100 03/29/20 17:22 - Orders/Labs/Meds Orders: Active Orders 24 hr Category Date Time Status Soft Tissue Neck w Cont [CT] Stat Exams 03/29/20 18:48 Ordered CULTURE BLOOD [BC] Stat Lab 03/29/20 18:55 Received CULTURE BLOOD [BC] Stat Lab 03/29/20 19:05 Received Sodium Chloride 0.9% [Normal Saline] 1,000 ml Med 03/29/20 18:49 Active IV .Bolus Blood Culture x2 Reflex Set [OM.PC] Stat Oth 03/29/20 18:48 Ordered Medication Orders Sodium Chloride (Normal Saline) 1,000 mls @ 999 mls/hr IV .Bolus ONE Stop: 03/29/20 19:49 Last Admin: 03/29/20 19:10 Dose: 999 mls/hr Documented by: HANDY Labs: Laboratory Tests 03/29/20 03/29/20 03/29/20 Range/Units 18:56 18:56 18:56 WBC 12.46 H (4.0-11.0) K/uL RBC 4.49 (4.30-5.90) M/uL Hgb 13.8 (12.0-16.0) g/dL Hct 41.3 (36.0-46.0) % MCV 92.0 (80.0-98.0) fL MCH 30.7 (27.0-32.0) pg MCHC 33.4 (31.0-37.0) g/dL RDW Std Deviation 46.1 (28.0-62.0) fl RDW Coeff of Ashlee 14 (11.0-15.0) % Plt Count 170 (150-400) K/uL MPV 10.90 (7.40-12.00) fL Neut % (Auto) 78.3 (48.0-80.0) % Lymph % (Auto) 11.6 L (16.0-40.0) % [place] % (Auto) 7.3 (0.0-15.0) % Eos % (Auto) 2.6 (0.0-7.0) % Baso % (Auto) 0.2 (0.0-1.5) % Neut # (Auto) 9.8 H (1.4-5.7) K/uL Lymph # (Auto) 1.4 (0.6-2.4) K/uL [place] # (Auto) 0.9 H (0.0-0.8) K/uL Eos # (Auto) 0.3 (0.0-0.7) K/uL Baso # (Auto) 0.0 (0.0-0.1) K/uL Nucleated RBC % 0.0 /100WBC Nucleated RBCs # 0 K/uL Sodium 139 (136-145) mmol/L Potassium 3.6 (3.5-5.1) mmol/L Chloride 102 (98-107) mmol/L Carbon Dioxide 27.8 (21.0-32.0) mmol/L BUN 5 L (7.0-18.0) mg/dL Creatinine 0.5 L (0.6-1.0) mg/dL Est Cr Clr Drug Dosing 119.63 mL/min Estimated GFR (MDRD) > 60.0 ml/min Glucose 93 (74-106) mg/dL Calcium 8.4 L (8.5-10.1) mg/dL Total Bilirubin 0.6 (0.2-1.0) mg/dL AST 11 L (15-37) IU/L ALT 14 (14-63) IU/L Alkaline Phosphatase 71 (46-116) U/L Total Protein 7.1 (6.4-8.2) g/dL Albumin 3.9 (3.4-5.0) g/dL Globulin 3.2 (2.6-4.0) g/dL Albumin/Globulin Ratio 1.2 (0.9-1.6) HCG, Qual POSITIVE H (NEG) Meds: Medications Generic Name Dose Route Start Last Admin Trade Name Mitzy PRN Reason Stop Dose Admin Sodium Chloride 1,000 mls @ 999 mls/hr 03/29/20 18:49 03/29/20 19:10 Normal Saline IV 03/29/20 19:49 999 mls/hr .Bolus ONE Administration Discontinued Medications Generic Name Dose Route Start Last Admin Trade Name Bolaq PRN Reason Stop Dose Admin Clindamycin HCl 600 mg 03/29/20 18:51 03/29/20 19:10 Cleocin PO 03/29/20 18:52 600 mg ONETIME ONE Administration Sodium Chloride 1,000 mls @ 999 mls/hr 03/29/20 18:05 Normal Saline IV 03/29/20 19:05 .Bolus ONE Ketorolac Tromethamine 15 mg 03/29/20 18:50 03/29/20 19:10 Toradol IVPUSH 03/29/20 18:51 15 mg ONETIME ONE Administration Sodium Chloride 10 ml 03/29/20 18:05 Saline Flush FLUSH ASDIRECTED PRN Keep Vein Open Sodium Chloride 2.5 ml 03/29/20 18:05 Saline Flush FLUSH ASDIRECTED PRN Keep Vein Open Departure - Departure Time of Disposition: 19:53 Disposition: Home, Self-Care 01 Condition: Good Clinical Impression: Tooth ache, Periodontal disease, - Discharge Information Instructions: Preventive Dental Care, Adult Referrals: PCP,Not In Area [Primary Care Provider] - Additional Instructions: The following information is given to patients seen in the emergency department who are being discharged to home. This information is to outline your options for follow-up care. We provide all patients seen in our emergency department with a follow-up referral. The need for follow-up, as well as the timing and circumstances, are variable depending upon the specifics of your emergency department visit. If you don't have a primary care physician on staff, we will provide you with a referral. We always advise you to contact your personal physician following an emergency department visit to inform them of the circumstance of the visit and for follow-up with them and/or the need for any referrals to a consulting specialist. The emergency department will also refer you to a specialist when appropriate. This referral assures that you have the opportunity for follow-up care with a specialist. All of these measure are taken in an effort to provide you with optimal care, which includes your follow-up. Under all circumstances we always encourage you to contact your private physician who remains a resource for coordinating your care. When calling for follow-up care, please make the office aware that this follow-up is from your recent emergency room visit. If for any reason you are refused follow-up, please contact the [facility] Emergency Department at and asked to speak to the emergency department charge nurse. [facility] [address] [place] [address] [id number] [address] [address] Sepsis Event Note (ED) - Evaluation Sepsis Screening Result: No Definite Risk - Focused Exam Vital Signs: Vital Signs Temp Pulse Resp BP Pulse Ox 03/29/20 17:22 97.4 F 99 16 123/78 100
[2020-03-29 20:09] VITALS: BP 109/80; PULSE 101
== END 2020-03-29 20:15 | disposition home or self-care (01) ==
LOC: MW.ED 17:13
DX: O99.611 Diseases of the digestive system complicating pregnancy, first trimester (principal); K08.89 Other specified disorders of teeth and supporting structures
CPT/HCPCS: 36415; 80053; 84703; 85025; 87040; 96374; 99283; A9270; J1885; J7030; 99282

== ENCOUNTER 2023-03-17 18:43 | Emergency (ER) | payer BC, MEDICAID ==
[2023-03-17 19:14] LABS: APPEARANCE,URINE SLT CLOUDY; BILIRUBIN,URINE NEGATIVE (NEGATIVE); COLOR,URINE YELLOW; GLUCOSE,URINE NEGATIVE (NEGATIVE); KETONES,URINE NEGATIVE (NEGATIVE); LEUKOCYTE ESTERASE,URINE NEGATIVE (NEGATIVE); NITRITE,URINE POSITIVE (NEGATIVE); OCCULT BLOOD,URINE SMALL (NEGATIVE); PROTEIN,URINE NEGATIVE (NEGATIVE); UROBILINOGEN,URINE 0.2 EU/dL (<2.0)
[2023-03-17 19:27] LABS: BACTERIA,URINE 4+ (NEGATIVE); EPITHELIAL CELLS,URINE MODERATE (NONE-FEW); RBC,URINE 0-2 (0-2/HPF); WBC,URINE 0-2 (0-5/HPF)
[2023-03-17 21:00] LABS: BASOPHILS PERCENT AUTO 0.3 % (0.0-1.5); EOSINOPHILS ABSOLUTE AUTO 0.3 K/uL (0.0-0.7); EOSINOPHILS PERCENT AUTO 2.7 % (0.0-7.0); HEMATOCRIT 38.2 % (36.0-46.0); HEMOGLOBIN 12.5 g/dL (12.0-16.0); LYMPHOCYTES PERCENT AUTO 18.9 % (16.0-40.0); MEAN CORPUSCULAR HEMOGLOBIN 30.4 pg (27.0-32.0); MEAN CORPUSCULAR HGB CONC 32.7 g/dL (31.0-37.0); MEAN CORPUSCULAR VOLUME 92.9 fL (80.0-98.0); MONOCYTES ABSOLUTE AUTO 0.7 K/uL (0.0-0.8); MONOCYTES PERCENT AUTO 6.1 % (0.0-15.0); NEUTROPHILS ABSOLUTE AUTO 7.7 K/uL (1.4-5.7); PLATELET COUNT,PLT 206 K/uL (150-400); RED BLOOD CELL COUNT 4.11 M/uL (4.30-5.90); WHITE BLOOD CELL COUNT,WBC 10.69 K/uL (4.0-11.0)
[2023-03-17 21:39] LABS: ALANINE AMINOTRANSFERASE,ALT 8 IU/L (14-63); ALBUMIN 3.4 g/dL (3.4-5.0); ALKALINE PHOSPHATASE 64 U/L (46-116); ASPARTATE AMNIOTRANSFERASE,AST 6 IU/L (15-37); BILIRUBIN TOTAL 0.2 mg/dL (0.2-1.0); BLOOD UREA NITROGEN,BUN 7 mg/dL (7.0-18.0); CALCIUM 8.6 mg/dL (8.5-10.1); CARBON DIOXIDE,CO2 26.1 mmol/L (21.0-32.0); CHLORIDE,CL 102 mmol/L (98-107); CREATININE 0.7 mg/dL (0.6-1.0); GLUCOSE RANDOM 133 mg/dL (74-106); PROTEIN TOTAL,TP 6.8 g/dL (6.4-8.2); SODIUM,NA 138 mmol/L (136-145)
[2023-03-17 21:40] LABS: ESTIMATED GFR 114 mL/min (>60)
[2023-03-17] MEDS ORDERED: Cephalexin 500 MG Cap PO STA (21:50)
[2023-03-18 00:44] VITALS: BP 127/76; PULSE 71
== END 2023-03-17 23:05 | disposition home or self-care (01) ==
LOC: MW.ED 18:43
DX: O02.0 Blighted ovum and nonhydatidiform mole (principal); O23.41 Unspecified infection of urinary tract in pregnancy, first trimester; N39.0 Urinary tract infection, site not specified; O09.521 Supervision of elderly multigravida, first trimester; Z67.41 Type O blood, Rh negative; Z98.890 Other specified postprocedural states; Z72.0 Tobacco use; Z3A.08 8 weeks gestation of pregnancy
CPT/HCPCS: 36415; 76801; 80053; 81001; 81025; 84702; 85025; 86850; 86900; 86901; 99284; A9270; 99283

== ENCOUNTER 2023-03-22 02:58 | Day surgery (SDC) | payer SELFPAY ==
[2023-03-22] MEDS ORDERED: Sodium Chloride 0.9% 1,000 ML IV ONE ×2 (03:16→08:39)
[2023-03-22 03:25] LABS: BASOPHILS PERCENT AUTO 0.2 % (0.0-1.5); EOSINOPHILS ABSOLUTE AUTO 0.4 K/uL (0.0-0.7); EOSINOPHILS PERCENT AUTO 2.8 % (0.0-7.0); HEMATOCRIT 35.6 % (36.0-46.0); LYMPHOCYTES ABSOLUTE AUTO 3.2 K/uL (0.6-2.4); LYMPHOCYTES PERCENT AUTO 21.5 % (16.0-40.0); MEAN CORPUSCULAR HEMOGLOBIN 31.2 pg (27.0-32.0); MEAN CORPUSCULAR HGB CONC 33.7 g/dL (31.0-37.0); MEAN CORPUSCULAR VOLUME 92.5 fL (80.0-98.0); MONOCYTES ABSOLUTE AUTO 0.8 K/uL (0.0-0.8); MONOCYTES PERCENT AUTO 5.5 % (0.0-15.0); NEUTROPHILS ABSOLUTE AUTO 10.4 K/uL (1.4-5.7); PLATELET COUNT,PLT 216 K/uL (150-400); RED BLOOD CELL COUNT 3.85 M/uL (4.30-5.90); WHITE BLOOD CELL COUNT,WBC 14.87 K/uL (4.0-11.0)
[2023-03-22 03:39] LABS: INR 0.96 (0.86-1.11)
[2023-03-22] MEDS ORDERED: LORazepam 0.5 MG Tab PO ONE (04:08)
[2023-03-22 04:16] LABS: ALBUMIN 3.4 g/dL (3.4-5.0); BILIRUBIN TOTAL 0.2 mg/dL (0.2-1.0); CARBON DIOXIDE,CO2 26.8 mmol/L (21.0-32.0); CREATININE 0.6 mg/dL (0.6-1.0); EST CRCL DRUG DOSING (CG) 110.86 mL/min; POTASSIUM,K 3.2 mmol/L (3.5-5.1); PROTEIN TOTAL,TP 6.8 g/dL (6.4-8.2)
[2023-03-22 05:33] LABS: BASOPHILS PERCENT AUTO 0.1 % (0.0-1.5); EOSINOPHILS ABSOLUTE AUTO 0.2 K/uL (0.0-0.7); EOSINOPHILS PERCENT AUTO 1.3 % (0.0-7.0); HEMATOCRIT 31.3 % (36.0-46.0); HEMOGLOBIN 10.4 g/dL (12.0-16.0); LYMPHOCYTES ABSOLUTE AUTO 1.5 K/uL (0.6-2.4); LYMPHOCYTES PERCENT AUTO 10.5 % (16.0-40.0); MEAN CORPUSCULAR HGB CONC 33.2 g/dL (31.0-37.0); MEAN CORPUSCULAR VOLUME 93.2 fL (80.0-98.0); MONOCYTES ABSOLUTE AUTO 0.8 K/uL (0.0-0.8); MONOCYTES PERCENT AUTO 5.7 % (0.0-15.0); NEUTROPHILS ABSOLUTE AUTO 11.7 K/uL (1.4-5.7); NEUTROPHILS PERCENT AUTO 82.4 % (48.0-80.0); PLATELET COUNT,PLT 195 K/uL (150-400); RED BLOOD CELL COUNT 3.36 M/uL (4.30-5.90); WHITE BLOOD CELL COUNT,WBC 14.21 K/uL (4.0-11.0)
[2023-03-22] MEDS ORDERED: Sodium Chloride 0.9% 1,000 ML IV STA (06:06)
[2023-03-22] MEDS ORDERED: fentaNYL 50 MCG/ML SDV IVPUSH ONE (06:48)
[2023-03-22] MEDS ORDERED: Methylergonovine 0.2 MG/1 ML Amp IM PRN (08:07)
[2023-03-22] MEDS ORDERED: Tranexamic Acid 1,000 MG in Sodium Chloride 0.9% 100 ML IV ONE ×2 (08:40→08:44)
[2023-03-22] MEDS ORDERED: Lidocaine 2% 5 ML SDV ONE (09:04)
[2023-03-22] MEDS ORDERED: fentaNYL 100 MCG/2 ML SDV ONE (09:04)
[2023-03-22] MEDS ORDERED: Propofol 200 MG/20 ML SDV ONE (09:05)
[2023-03-22] MEDS ORDERED: Succinylcholine/Sod PF 100 MG/5 ML SYRINGE IV ONE (09:09)
[2023-03-22] MEDS ORDERED: Phenylephrine HCl 0.5 MG/5 ML AMP ONE (09:09)
[2023-03-22] MEDS ORDERED: Ondansetron 4 MG/2 ML SDV ONE (09:09)
[2023-03-22 09:13] LABS: HEMATOCRIT 22.8 % (36.0-46.0); HEMOGLOBIN 7.6 g/dL (12.0-16.0); MEAN CORPUSCULAR HGB CONC 33.3 g/dL (31.0-37.0); MEAN CORPUSCULAR VOLUME 93.1 fL (80.0-98.0); PLATELET COUNT,PLT 143 K/uL (150-400); RED BLOOD CELL COUNT 2.45 M/uL (4.30-5.90)
[2023-03-22] MEDS ORDERED: Famotidine 20 MG/2 ML SDV ONE (09:26)
[2023-03-22] MEDS ORDERED: Ondansetron 4 MG/2 ML SDV IVPUSH PRN (09:29)
[2023-03-22] MEDS ORDERED: Metoclopramide 10 MG/2 ML SDV IVPUSH PRN (09:29)
[2023-03-22] MEDS ORDERED: fentaNYL 50 MCG/ML SDV IVPUSH PRN (09:29)
[2023-03-22] MEDS ORDERED: HYDROmorphone 1 MG/ML Syringe IVPUSH PRN (09:29)
[2023-03-22] MEDS ORDERED: Naloxone 0.4 MG/ML SDV IVPUSH PRN (09:29)
[2023-03-22] MEDS ORDERED: Albuterol 0.083% 2.5 MG/3 ML Neb Soln NEB PRN (09:29)
[2023-03-22] MEDS ORDERED: Morphine 2 MG/ML SYRINGE IVPUSH PRN (09:29)
[2023-03-22] MEDS ORDERED: droPERidol 5 MG/2 ML SDV IVPUSH PRN (09:29)
[2023-03-22] MEDS ORDERED: Carboprost Tromethamine 250 MCG/1 mL Vial ONE (09:49)
[2023-03-22] MEDS ORDERED: Methylergonovine 0.2 MG/1 ML Amp ONE (09:50)
[2023-03-22 11:24] LABS: HEMATOCRIT 23.1 % (36.0-46.0); HEMOGLOBIN 7.7 g/dL (12.0-16.0)
[2023-03-22 13:22] LABS: HEMATOCRIT 29.6 % (36.0-46.0)
[2023-03-22 13:30] VITALS: BP 94/54; PULSE 77
== END 2023-03-22 14:00 | disposition home or self-care (01) ==
LOC: MW.ED 02:58 → MW.SDS 02:58
PROVIDERS: ATTEND Obstetrics & Gynecology
DX: O03.4 Incomplete spontaneous abortion without complication (principal); O73.1 Retained portions of placenta and membranes, without hemorrhage; K21.9 Gastro-esophageal reflux disease without esophagitis; F41.9 Anxiety disorder, unspecified; F17.210 Nicotine dependence, cigarettes, uncomplicated; Z79.899 Other long term (current) drug therapy; Z98.890 Other specified postprocedural states
CPT/HCPCS: 36415; 36430; 59812; 76801; 80053; 84702; 85014; 85018; 85025; 85027; 85610; 86850; 86900; 86901; 86920; 96361; 96372; 96374; 96375; 99285; A9270; J0330; J2210; J2370; J2405; J2704; J3010; J3490; J7030; P9016; 99291

== ENCOUNTER 2023-03-22 16:07 | Observation (INO) | payer SELFPAY ==
[2023-03-22 16:57] LABS: APPEARANCE,URINE CLEAR; BILIRUBIN,URINE NEGATIVE (NEGATIVE); COLOR,URINE YELLOW; GLUCOSE,URINE NEGATIVE (NEGATIVE); KETONES,URINE NEGATIVE (NEGATIVE); LEUKOCYTE ESTERASE,URINE NEGATIVE (NEGATIVE); NITRITE,URINE NEGATIVE (NEGATIVE); OCCULT BLOOD,URINE MODERATE (NEGATIVE); PROTEIN,URINE NEGATIVE (NEGATIVE); UROBILINOGEN,URINE 0.2 EU/dL (<2.0)
[2023-03-22 17:09] LABS: BACTERIA,URINE NOT SEEN (NEGATIVE); EPITHELIAL CELLS,URINE FEW (NONE-FEW); WBC,URINE 0-1 (0-5/HPF)
[2023-03-22 17:12] LABS: BASOPHILS PERCENT AUTO 0.1 % (0.0-1.5); EOSINOPHILS ABSOLUTE AUTO 0.1 K/uL (0.0-0.7); EOSINOPHILS PERCENT AUTO 0.7 % (0.0-7.0); HEMATOCRIT 29.2 % (36.0-46.0); HEMOGLOBIN 10.1 g/dL (12.0-16.0); LYMPHOCYTES ABSOLUTE AUTO 1.9 K/uL (0.6-2.4); MEAN CORPUSCULAR HEMOGLOBIN 31.1 pg (27.0-32.0); MEAN CORPUSCULAR HGB CONC 34.6 g/dL (31.0-37.0); MEAN CORPUSCULAR VOLUME 89.8 fL (80.0-98.0); MONOCYTES ABSOLUTE AUTO 0.9 K/uL (0.0-0.8); MONOCYTES PERCENT AUTO 5.8 % (0.0-15.0); NEUTROPHILS ABSOLUTE AUTO 12.7 K/uL (1.4-5.7); NEUTROPHILS PERCENT AUTO 81.4 % (48.0-80.0); PLATELET COUNT,PLT 153 K/uL (150-400); RED BLOOD CELL COUNT 3.25 M/uL (4.30-5.90); WHITE BLOOD CELL COUNT,WBC 15.56 K/uL (4.0-11.0)
[2023-03-22] MEDS ORDERED: Amoxicillin/Clavulanate K 875-125 MG Tab PO ONE (17:27)
[2023-03-22] MEDS ORDERED: predniSONE 20 MG Tab PO ONE (17:27)
[2023-03-22] MEDS ORDERED: Sodium Chloride 0.9% 10 ML Syringe FLUSH PRN (17:37)
[2023-03-22] MEDS ORDERED: Sodium Chloride 0.9% 2.5 ML Syringe FLUSH PRN (17:37)
[2023-03-22] MEDS ORDERED: Sodium Chloride 0.9% 1,000 ML IV ONE (17:38)
[2023-03-22 18:32] LABS: POTASSIUM,K 4.3 mmol/L (3.5-5.1)
[2023-03-22 18:41] LABS: CALCIUM 6.8 mg/dL (8.5-10.1); CREATININE 0.5 mg/dL (0.6-1.0); EST CRCL DRUG DOSING (CG) 116.25 mL/min
[2023-03-22 18:59] LABS: A/G RATIO 1.1 (0.9-1.6); ALBUMIN 2.4 g/dL (3.4-5.0); BILIRUBIN TOTAL 0.8 mg/dL (0.2-1.0); CARBON DIOXIDE,CO2 22.1 mmol/L (21.0-32.0); PROTEIN TOTAL,TP 4.6 g/dL (6.4-8.2)
[2023-03-22] MEDS ORDERED: Acetaminophen 325 MG Tab PO PRN (21:36)
[2023-03-22] MEDS ORDERED: Benzocaine/Cetylpyridinium/Menthol Lozenge MUCMEM PRN (21:37)
[2023-03-22] MEDS ORDERED: Phenol 1.4% Oral Spray 177 ML Bottle MUCMEM PRN (21:37)
[2023-03-22] MEDS: Lactated Ringers 1,000 ML IV SCH (21:51)
[2023-03-23 05:40] LABS: HEMATOCRIT 25.4 % (36.0-46.0); HEMOGLOBIN 8.8 g/dL (12.0-16.0); MEAN CORPUSCULAR HEMOGLOBIN 31.2 pg (27.0-32.0); MEAN CORPUSCULAR HGB CONC 34.6 g/dL (31.0-37.0); MEAN CORPUSCULAR VOLUME 90.1 fL (80.0-98.0); PLATELET COUNT,PLT 144 K/uL (150-400); RED BLOOD CELL COUNT 2.82 M/uL (4.30-5.90); WHITE BLOOD CELL COUNT,WBC 12.77 K/uL (4.0-11.0)
[2023-03-23] MEDS: Lactated Ringers 1,000 ML IV SCH (05:52)
[2023-03-23 06:32] LABS: BAND ABSOLUTE MAN 0.1; LYMPHOCYTES ABSOLUTE MAN 3.3 (0.6-2.4); LYMPHOCYTES PERCENT MAN 26 % (16.0-40.0); MONOCYTES ABSOLUTE MAN 0.9 (0.0-0.8); MONOCYTES PERCENT MAN 7 % (0.0-15.0); SEG NEUTROPHILS ABSOLUTE MAN 8.6 (1.4-5.7); SEG NEUTROPHILS PERCENT MAN 67 % (48.0-80.0)
[2023-03-23 09:00] VITALS: BP 110/57; PULSE 98
== END 2023-03-23 11:14 | disposition home or self-care (01) ==
LOC: MW.ED 16:07 → MW.MS 19:08
PROVIDERS: ADMIT Obstetrics & Gynecology; ATTEND Obstetrics & Gynecology
DX: I95.89 Other hypotension (principal); O03.9 Complete or unspecified spontaneous abortion without complication; R53.1 Weakness; K21.9 Gastro-esophageal reflux disease without esophagitis; M54.2 Cervicalgia; G89.29 Other chronic pain; F41.9 Anxiety disorder, unspecified; F17.210 Nicotine dependence, cigarettes, uncomplicated; Z79.2 Long term (current) use of antibiotics
CPT/HCPCS: 36415; 80053; 81001; 83605; 85025; A9270; J3490; J7030; J7120; 99283